=== PATIENT | male | born 1970 | race African-American/Black ===

== ENCOUNTER 2021-02-15 21:32 | Emergency (ER) | payer OTHER ==
[2021-02-15] MEDS ORDERED: IBUPROFEN 600 MG TABLET (FP) PO ONE ×3 (21:40→22:47)
[2021-02-15 21:42] VITALS: BP 142/95; PULSE 94; TEMP 99; BMI 25.0
== END 2021-02-15 22:51 | disposition home or self-care (01) ==
LOC: FER 21:32
DX: S83.91XA Sprain of unspecified site of right knee, initial encounter (principal); X50.0XXA Overexertion from strenuous movement or load, initial encounter
CPT/HCPCS: 73560-TC-RT-FY; 99283-25